=== PATIENT | male | born 1975 | race Caucasian/White ===

== ENCOUNTER 2017-07-16 09:14 | Outpatient (CLI) | payer OTHER ==
[2017-07-16 18:50] LABS: ALBUMIN 4.5 g/dL (3.2-5.5); ALBUMIN/GLOBULIN RATIO 1.6 (1.0-2.2); ALKALINE PHOSPHATASE 71 IU/L (42-121); ALT ALANINE AMINOTRANSFERASE 29 IU/L (10-60); AST ASPARTATE AMINOTRANSFERASE 22 IU/L (10-42); BILIRUBIN,TOTAL 1.3 mg/dL (0.2-1.0); BUN - BLOOD UREA NITROGEN 14 mg/dL (6-20); CALCIUM 9.3 mg/dL (8.5-10.3); CARBON DIOXIDE - CO2 26 mmol/L (21-32); CHLORIDE 103 mmol/L (101-111); CHOL/HDL RATIO 4.1 (<5.0); CHOLESTEROL 151 mg/dL; CREATININE 1.2 mg/dL (0.6-1.2); GFR - MDRD 66 (>89); GLUCOSE 88 mg/dL (70-100); HDL CHOLESTEROL 37 mg/dL; LDL CHOLESTEROL,CALCULATED 77 mg/dL; LDL/HDL RATIO 2.1 (<3.6); SODIUM 139 mmol/L (135-145); TOTAL PROTEIN 7.3 g/dL (6.7-8.2); VLDL CHOLESTEROL 37 mg/dL
[2017-07-16 18:58] LABS: THYROID STIMULATING HORMONE 0.23 uIU/mL (0.34-5.60)
[2017-07-16 21:48] LABS: FREE T4 (FREE THYROXINE) 1.11 ng/dL (0.58-1.64)
== END 2017-07-16 09:15 | disposition home or self-care (01) ==
LOC: LAB.F 09:14
PROVIDERS: ATTEND Nurse Practitioner Family
DX: I50.9 Heart failure, unspecified (principal); E78.1 Pure hyperglyceridemia; E06.3 Autoimmune thyroiditis; Z86.39 Personal history of other endocrine, nutritional and metabolic disease
CPT/HCPCS: 36415; 80053; 80061; 83721; 84439; 84443

== ENCOUNTER 2017-10-26 11:15 | Outpatient (CLI) | payer OTHER ==
[2017-10-26 17:23] LABS: BASOPHILS # (AUTO) 0.1 10^3/uL (0.0-0.1); BASOPHILS % (AUTO) 0.8 %; EOSINOPHILS # (AUTO) 0.3 10^3/uL (0.0-0.7); EOSINOPHILS % (AUTO) 3.8 %; HGB - HEMOGLOBIN 14.9 g/dL (14.0-18.0); LYMPHOCYTES # (AUTO) 2.7 10^3/uL (1.5-3.5); LYMPHOCYTES % (AUTO) 40.7 %; MEAN CORPUSCULAR HEMOGLOBIN 30.1 pg (27.0-31.0); MEAN CORPUSCULAR HGB CONC 33.2 g/dL (32.0-36.0); MEAN CORPUSCULAR VOLUME 90.7 fL (80.0-94.0); MEAN PLATELET VOLUME 7.4 fL (7.4-11.4); MONOCYTES # (AUTO) 0.6 10^3/uL (0.0-1.0); MONOCYTES % (AUTO) 8.6 %; NEUTROPHILS # (AUTO) 3.1 10^3/uL (1.5-6.6); NEUTROPHILS % (AUTO) 46.1 %; PLT - PLATELET COUNT 217 10^3/uL (130-450); RED BLOOD COUNT 4.95 10^6/uL (4.70-6.10); WHITE BLOOD COUNT 6.7 x10^3/uL (4.8-10.8)
[2017-10-26 17:36] LABS: CALCIUM 9.2 mg/dL (8.5-10.3); CREATININE 1.1 mg/dL (0.6-1.2)
== END 2017-10-26 11:16 | disposition home or self-care (01) ==
LOC: LAB.F 11:15
PROVIDERS: ATTEND Nurse Practitioner Family
DX: E06.3 Autoimmune thyroiditis (principal); E05.80 Other thyrotoxicosis without thyrotoxic crisis or storm; I42.8 Other cardiomyopathies; Z45.02 Encounter for adjustment and management of automatic implantable cardiac defibrillator
CPT/HCPCS: 36415; 80048; 84443; 85025

== ENCOUNTER 2020-04-20 12:28 | Outpatient (CLI) | payer BC, OTHER ==
[2020-04-20 14:39] LABS: BASOPHILS # (AUTO) 0.1 10^3/uL (0.0-0.1); BASOPHILS % (AUTO) 0.8 %; EOSINOPHILS # (AUTO) 0.3 10^3/uL (0.0-0.7); EOSINOPHILS % (AUTO) 3.3 %; HGB - HEMOGLOBIN 16.2 g/dL (14.0-18.0); MEAN CORPUSCULAR HEMOGLOBIN 31.4 pg (27.0-31.0); MEAN CORPUSCULAR HGB CONC 33.1 g/dL (32.0-36.0); MEAN CORPUSCULAR VOLUME 94.8 fL (80.0-94.0); MEAN PLATELET VOLUME 9.5 fL (7.4-11.4); MONOCYTES # (AUTO) 0.5 10^3/uL (0.0-1.0); MONOCYTES % (AUTO) 6.5 %; NEUTROPHILS # (AUTO) 4.1 10^3/uL (1.5-6.6); NEUTROPHILS % (AUTO) 51.8 %; PLT - PLATELET COUNT 208 10^3/uL (130-450); RED BLOOD COUNT 5.16 10^6/uL (4.70-6.10); RED CELL DISTRIBUTION WIDTH 12.1 % (12.0-15.0)
[2020-04-20 15:25] LABS: ALBUMIN/GLOBULIN RATIO 1.8 (1.0-2.2); ALKALINE PHOSPHATASE 85 IU/L (42-121); ALT ALANINE AMINOTRANSFERASE 23 IU/L (10-60); AST ASPARTATE AMINOTRANSFERASE 20 IU/L (10-42); BILIRUBIN,TOTAL 1.4 mg/dL (0.2-1.0); BUN - BLOOD UREA NITROGEN 13 mg/dL (6-20); CALCIUM 9.6 mg/dL (8.5-10.3); CARBON DIOXIDE - CO2 28 mmol/L (21-32); CHLORIDE 103 mmol/L (101-111); CHOL/HDL RATIO 4.3 (<5.0); CHOLESTEROL 193 mg/dL; CREATININE 1.2 mg/dL (0.6-1.2); GLUCOSE 95 mg/dL (70-100); HDL CHOLESTEROL 45 mg/dL; LDL CHOLESTEROL,CALCULATED 106 mg/dL; LDL/HDL RATIO 2.4 (<3.6); SODIUM 141 mmol/L (135-145); TOTAL PROTEIN 7.8 g/dL (6.7-8.2); VLDL CHOLESTEROL 42 mg/dL
== END 2020-04-20 12:29 | disposition home or self-care (01) ==
LOC: LAB.S 12:28
PROVIDERS: ATTEND Physician Assistant
DX: E78.5 Hyperlipidemia, unspecified (principal); Z13.1 Encounter for screening for diabetes mellitus; E78.1 Pure hyperglyceridemia; E06.3 Autoimmune thyroiditis; E66.9 Obesity, unspecified; Z95.810 Presence of automatic (implantable) cardiac defibrillator; I50.9 Heart failure, unspecified
CPT/HCPCS: 36415; 80053; 80061; 83721; 83880; 84443; 85025

== ENCOUNTER 2022-12-29 14:38 | Outpatient (CLI) | payer BC ==
[2022-12-29 20:37] LABS: BASOPHILS # (AUTO) 0.1 10^3/uL (0.0-0.1); BASOPHILS % (AUTO) 1.4 %; EOSINOPHILS # (AUTO) 0.4 10^3/uL (0.0-0.7); EOSINOPHILS % (AUTO) 4.5 %; HCT - HEMATOCRIT 45.6 % (42.0-52.0); HGB - HEMOGLOBIN 14.2 g/dL (14.0-18.0); LYMPHOCYTES # (AUTO) 1.9 10^3/uL (1.5-3.5); LYMPHOCYTES % (AUTO) 25.1 %; MEAN CORPUSCULAR HEMOGLOBIN 30.9 pg (27.0-31.0); MEAN CORPUSCULAR HGB CONC 31.1 g/dL (32.0-36.0); MEAN CORPUSCULAR VOLUME 99.3 fL (80.0-94.0); MEAN PLATELET VOLUME 9.6 fL (7.4-11.4); MONOCYTES # (AUTO) 0.6 10^3/uL (0.0-1.0); MONOCYTES % (AUTO) 7.2 %; NEUTROPHILS # (AUTO) 4.7 10^3/uL (1.5-6.6); NEUTROPHILS % (AUTO) 61.3 %; PLT - PLATELET COUNT 251 10^3/uL (130-450); RED BLOOD COUNT 4.59 10^6/uL (4.70-6.10); RED CELL DISTRIBUTION WIDTH 14.4 % (12.0-15.0); WHITE BLOOD COUNT 7.7 x10^3/uL (4.8-10.8)
[2022-12-29 21:04] LABS: ALBUMIN 4.4 g/dL (3.2-5.5); ALBUMIN/GLOBULIN RATIO 1.8 (1.0-2.2); ALKALINE PHOSPHATASE 141 IU/L (42-121); ALT ALANINE AMINOTRANSFERASE 31 IU/L (10-60); AST ASPARTATE AMINOTRANSFERASE 32 IU/L (10-42); BUN - BLOOD UREA NITROGEN 15 mg/dL (6-20); CALCIUM 9.3 mg/dL (8.5-10.3); CARBON DIOXIDE - CO2 28 mmol/L (21-32); CHLORIDE 108 mmol/L (101-111); CHOL/HDL RATIO 4.5 (<5.0); CHOLESTEROL 175 mg/dL; CREATININE 1.4 mg/dL (0.6-1.3); GFR - MDRD 54 (>89); GLUCOSE 100 mg/dL (74-104); HDL CHOLESTEROL 39 mg/dL; LDL CHOLESTEROL,CALCULATED 107 mg/dL; LDL/HDL RATIO 2.7 (<3.6); POTASSIUM 3.8 mmol/L (3.5-4.5); SODIUM 141 mmol/L (135-145); TOTAL PROTEIN 6.9 g/dL (6.4-8.9); TRIGLYCERIDES 146 mg/dL (48-352); VLDL CHOLESTEROL 29 mg/dL
[2022-12-30 14:02] LABS: GAMMA GLUTAMYL TRANSPEPTIDASE 207 IU/L (9-64)
== END 2022-12-29 14:39 | disposition home or self-care (01) ==
LOC: LAB.S 14:38
PROVIDERS: ATTEND Registered Nurse
DX: I12.9 Hypertensive chronic kidney disease with stage 1 through stage 4 chronic kidney disease, or unspecified chronic kidney disease (principal); N18.9 Chronic kidney disease, unspecified; E78.5 Hyperlipidemia, unspecified; E06.3 Autoimmune thyroiditis
CPT/HCPCS: 36415; 80053; 80061; 82977; 83721; 84439; 84443; 85025

== ENCOUNTER 2022-12-31 20:58 | Emergency (ER) | payer BC ==
--- NOTE | 2022-12-31 21:24 | ED Physician Documentation ---
PD HPI DYSPNEA - Stated complaint Stated Complaint: SOA - Chief complaint Chief Complaint: General - History obtained from History obtained from: Patient - Additional information Additional information: HPI from patient. Patient complains of dyspnea, particularly dyspnea on exertion. This has been associated with occasional nonproductive cough, as well as bilateral lower extremity weakness. The symptoms have been ongoing for approximately 2 to 3 weeks. Of note, patient stopped taking his levothyroxine approximately 4 or 5 weeks ago. He says he stopped taking this medication because he felt a was feeling well, as well as for financial reasons. He contacted his primary care provider 2 days ago (Sunday) and has an upcoming appointment; outpatient blood tests were obtained 2 days ago in anticipation of the upcoming appointment. Additionally, the primary care provider did submit a prescription for levothyroxine, which patient did start 2 days ago.Patient denies chest pain, fever. Review of Systems Unable to obtain: Unresponsive Constitutional: denies: Fever, Chills, Sweats Cardiac: reports: Reviewed and negative Respiratory: reports: Dyspnea, Cough GI: reports: Reviewed and negative Neurologic: reports: Generalized weakness. denies: Focal weakness, Numbness, Headache PD PAST MEDICAL HISTORY - Past Medical History Past Medical History: Yes Cardiovascular: Hypertension Endocrine/Autoimmune: HyPOthyroidism - Present Medications Home Medications: Ambulatory Orders Medication Instructions Recorded Confirmed Azithromycin [Zithromax] 250 mg PO DAILY #4 tablet 01/01/23 - Allergies Allergies/Adverse Reactions: Allergies Allergy/AdvReac Type Severity Reaction Status Date / Time heparin Allergy Unknown Verified 12/31/22 21:01 PD ED PE NORMAL - Vitals Vital signs reviewed: Yes - General General: Alert and oriented X 3, No acute distress, Well developed/nourished - Neck Neck: Supple, no meningeal sign - Cardiac Cardiac: RRR, No murmur - Respiratory Respiratory: No respiratory distress, Other (scant bibasilar rales/rhonchi) - Derm Derm: Normal color, Warm and dry - Extremities Extremities: No edema - Neuro Neuro: Alert and oriented X 3, No motor deficit, No sensory deficit Results - Vitals Vitals: Oxygen O2 Source Room air - Labs Labs: Laboratory Tests 12/31/22 12/31/22 21:59 21:59 WBC 8.3 RBC 4.74 Hgb 14.6 Hct 45.6 MCV 96.2 H MCH 30.8 MCHC 32.0 RDW 13.6 Plt Count 259 MPV 8.7 Neut # (Auto) 5.6 Lymph # (Auto) 1.6 [place] # (Auto) 0.7 Eos # (Auto) 0.2 Baso # (Auto) 0.1 Absolute Nucleated RBC 0.00 Nucleated RBC % 0.0 Sodium 139 Potassium 3.8 Chloride 105 Carbon Dioxide 26 Anion Gap 8.0 BUN 12 Creatinine 1.5 H Estimated GFR (MDRD) 50 L Glucose 128 H Calcium 8.8 Total Bilirubin 3.0 H AST 28 ALT 25 Alkaline Phosphatase 144 H Total Protein 7.2 Albumin 4.3 Globulin 2.9 Albumin/Globulin Ratio 1.5 Lipase 40 TSH 96.00 H Free T4 Direct 0.43 L Thyroxine (T4) 4.9 L - Rads (name of study) chest xray Relevant Findings:: Prelim report reviewed, See rad report PD Medical Decision Making - ED course Complexity details: reviewed results, re-evaluated patient, considered differential, d/w patient ED course: tests ordered and results reviewed by me: CBC, ER abdominal panel, TSH, T4, free T4, CXR. Normal CBC. Thyroid tests are abnormal , comparable to previous (few days prior). He restarted his levothyroxine few days ago and thus no significant change in thyroid tests is expected. He does not have signs/symptoms to suggest myxedema coma. BMP unremarkable (mildly elevated creatinine , 1.5). LFTs normal except mildly elevated bilirubin (3.0). Despite being in NAD including no respiratory distress, and only mild bilateral mid-lung field rhonchi, chest xray reflects significant bilateral perihilar infiltrates. He is given 1 gram IV rocephin, 500mg PO zithromax for pneumonia and e-prescribed 250mg azithromycin QD x 4 days. Results d/w patient, return precautions reviewed, advised to seek follow up with PMD (next available appointment). Departure - Departure Disposition: 01 Home, Self Care Clinical Impression: Pneumonia Qualifiers: Pneumonia type: due to unspecified organism Laterality: bilateral Lung location: unspecified part of lung Qualified Code(s): J18.9 - Pneumonia, unspecified organism Condition: Good Instructions: ED Pneumonia Adult Prescriptions: Azithromycin [Zithromax] 250 mg PO DAILY #4 tablet Comments: Your thyroid tests are markedly abnormal, although comparable to a few days ago when you had them tested on Sunday. As we discussed, as you continue to take the prescribed thyroid medication, your levels should improve as should your symptoms. The chest x-ray performed tonight does show haziness in both lungs suggestive of bilateral pneumonia. For this, you are given 2 different antibiotics (Rocephin through the IV as well as Zithromax orally), and I have electronically submitted a prescription for 4 more days of the Zithromax to the [facility] pharmacy in [place]. Follow-up with your primary care provider Sunday as scheduled for reevaluation. Forms: PCP List Discharge Date/Time: 01/01/23 02:38
[2022-12-31 22:04] LABS: BASOPHILS # (AUTO) 0.1 10^3/uL (0.0-0.1); BASOPHILS % (AUTO) 0.8 %; EOSINOPHILS # (AUTO) 0.2 10^3/uL (0.0-0.7); EOSINOPHILS % (AUTO) 2.9 %; HCT - HEMATOCRIT 45.6 % (42.0-52.0); HGB - HEMOGLOBIN 14.6 g/dL (14.0-18.0); LYMPHOCYTES # (AUTO) 1.6 10^3/uL (1.5-3.5); MEAN CORPUSCULAR HEMOGLOBIN 30.8 pg (27.0-31.0); MEAN CORPUSCULAR VOLUME 96.2 fL (80.0-94.0); MEAN PLATELET VOLUME 8.7 fL (7.4-11.4); MONOCYTES # (AUTO) 0.7 10^3/uL (0.0-1.0); MONOCYTES % (AUTO) 8.9 %; NEUTROPHILS # (AUTO) 5.6 10^3/uL (1.5-6.6); NEUTROPHILS % (AUTO) 67.8 %; PLT - PLATELET COUNT 259 10^3/uL (130-450); RED BLOOD COUNT 4.74 10^6/uL (4.70-6.10); RED CELL DISTRIBUTION WIDTH 13.6 % (12.0-15.0); WHITE BLOOD COUNT 8.3 x10^3/uL (4.8-10.8)
[2022-12-31 22:47] LABS: ALBUMIN 4.3 g/dL (3.2-5.5); ALBUMIN/GLOBULIN RATIO 1.5 (1.0-2.2); CALCIUM 8.8 mg/dL (8.5-10.3); CREATININE 1.5 mg/dL (0.6-1.2); POTASSIUM 3.8 mmol/L (3.5-5.0); TOTAL PROTEIN 7.2 g/dL (6.7-8.2)
--- NOTE | 2023-01-01 01:23 | XRAY Report ---
PROCEDURE: Chest 2 View X-Ray INDICATIONS: dyspnea. Productive cough. TECHNIQUE: 2 views of the chest were acquired. COMPARISON: None. FINDINGS: Surgical changes and devices: There is a left chest wall ICD with a single lead projecting over the right ventricle. Lungs and pleura: There are confluent bilateral perihilar airspace opacities consistent with consoli dation, right greater than left. There are small bilateral pleural effusions. No pneumothorax. Mediastinum: Mediastinal contours appear normal. Heart size is normal. Bones and chest wall: No suspicious bony lesions. Overlying soft tissues appear unremarkable. IMPRESSION: 1. Bilateral confluent perihilar consolidation consistent with pneumonia given clinical history. Nolberto mmend short-term follow-up to demonstrate resolution and exclude an underlying mass. Reviewed by: Aleksandr Garcias MD on 01/01/2023 1:22 AM PDT Approved by: Aleksandr Garcias MD on 01/01/2023 1:22 AM PDT Station ID: [id number]
[2023-01-01] MEDS ORDERED: AZITHROMYCIN 250 MG TABLET PO STA (01:58)
[2023-01-01] MEDS ORDERED: cefTRIAXone 1 GM in SODIUM CHLORIDE 0.9% MINIBAG 100 ML IV STA (01:58)
[2023-01-01] MEDS ORDERED: cefTRIAXone 1 GM VIAL ONE (02:23)
[2023-01-01 02:45] VITALS: BP 102/78
== END 2023-01-01 02:38 | disposition home or self-care (01) ==
LOC: ED 20:58
DX: J18.9 Pneumonia, unspecified organism (principal); I10 Essential (primary) hypertension
CPT/HCPCS: 36415; 71046; 80053; 83690; 84436; 84439; 84443; 85025; 96374; 99284; A9270

== ENCOUNTER 2023-04-04 07:55 | Emergency (ER) | payer BC ==
[2023-04-04] MEDS ORDERED: SODIUM CHLORIDE 0.9% 500 ML IV STA (08:30)
[2023-04-04 08:56] LABS: BASOPHILS # (AUTO) 0.1 10^3/uL (0.0-0.1); BASOPHILS % (AUTO) 0.9 %; EOSINOPHILS # (AUTO) 0.1 10^3/uL (0.0-0.7); EOSINOPHILS % (AUTO) 0.9 %; HCT - HEMATOCRIT 54.7 % (42.0-52.0); HGB - HEMOGLOBIN 16.7 g/dL (14.0-18.0); LYMPHOCYTES # (AUTO) 2.7 10^3/uL (1.5-3.5); LYMPHOCYTES % (AUTO) 30.3 %; MEAN CORPUSCULAR HEMOGLOBIN 29.7 pg (27.0-31.0); MEAN CORPUSCULAR HGB CONC 30.5 g/dL (32.0-36.0); MEAN CORPUSCULAR VOLUME 97.3 fL (80.0-94.0); MEAN PLATELET VOLUME 10.4 fL (7.4-11.4); MONOCYTES # (AUTO) 0.6 10^3/uL (0.0-1.0); MONOCYTES % (AUTO) 6.5 %; NEUTROPHILS # (AUTO) 5.4 10^3/uL (1.5-6.6); NEUTROPHILS % (AUTO) 60.3 %; PLT - PLATELET COUNT 271 10^3/uL (130-450); RED BLOOD COUNT 5.62 10^6/uL (4.70-6.10); RED CELL DISTRIBUTION WIDTH 16.2 % (12.0-15.0)
[2023-04-04 08:57] LABS: ALBUMIN/GLOBULIN RATIO 1.7 (1.0-2.2); BILIRUBIN,TOTAL 3.9 mg/dL (0.2-1.0); CALCIUM 9.1 mg/dL (8.5-10.3); CREATININE 1.8 mg/dL (0.6-1.3); POTASSIUM 4.4 mmol/L (3.5-4.5); TOTAL PROTEIN 6.3 g/dL (6.4-8.9)
--- NOTE | 2023-04-04 09:07 | XRAY Report ---
PROCEDURE: Chest 1 View X-Ray INDICATIONS: SOA/cough TECHNIQUE: One view of the chest was acquired. COMPARISON: Chest x-ray 12/31/2022 FINDINGS: Surgical changes and devices: A smoker. Lungs and pleura: No pleural effusions or pneumothorax. Lungs are clear. Mediastinum: Mediastinal contours appear normal. Heart size is enlarged. Bones and chest wall: No suspicious bony lesions. Overlying soft tissues appear unremarkable. IMPRESSION: No acute cardiopulmonary process. Reviewed by: Monica Vines MD on 04/04/2023 9:06 AM [facility] Approved by: Monica Vines MD on 04/04/2023 9:06 AM [facility] Station ID: [id number]
--- NOTE | 2023-04-04 09:49 | ED Physician Documentation ---
PD HPI DYSPNEA - Stated complaint Stated Complaint: SOA - Chief complaint Chief Complaint: Resp - History obtained from History obtained from: Patient - Additional information Additional information: Patient is a 48-year-old male with a history of congestive heart failure and hypothyroidism presenting for evaluation of feeling short of air. Patient was seen here in December with similar symptoms and at that time felt to have pneumonia and completed a course of antibiotics. He states that his shortness of air has been continuing since that time and has never really gotten better. He states he had minimal improvement while on the antibiotics. He saw his PCP a few days after his ER visit this summer and not much came from that visit. He states he has had a dry cough for the past several weeks. No chest pain, no dizziness. Chest pain is worse with exertion. Is only on his thyroid medications currently. Not taking anything as far as antihypertensives or diuretic. No fevers. No abdominal symptoms. Review of Systems Constitutional: denies: Fever Cardiac: denies: Chest pain / pressure Respiratory: reports: Dyspnea, Cough GI: denies: Abdominal Pain, Vomiting Musculoskeletal: reports: Extremity swelling PD PAST MEDICAL HISTORY - Past Medical History Past Medical History: Yes Cardiovascular: Congestive heart failure, Hypertension Respiratory: None Neuro: None Endocrine/Autoimmune: HyPOthyroidism GI: GERD : None HEENT: None Psych: Depression Musculoskeletal: None Derm: Other - Past Surgical History Past Surgical History: Yes Cardiovascular: Pacemaker, AICD - Present Medications Home Medications: Ambulatory Orders Medication Instructions Recorded Confirmed Furosemide [Lasix] 20 mg PO DAILY #3 tablet 04/04/23 Levothyroxine Sodium [Unithroid] 175 mcg PO DAILY 04/04/23 04/04/23 - Allergies Allergies/Adverse Reactions: Allergies Allergy/AdvReac Type Severity Reaction Status Date / Time heparin Allergy Unknown Verified 04/04/23 08:08 piperacillin [From Zosyn] Allergy Unknown Verified 04/04/23 08:08 tazobactam [From Zosyn] Allergy Unknown Verified 04/04/23 08:08 - Social History Does the pt smoke?: No Smoking Status: Never smoker Does the pt drink ETOH?: No Does the pt have substance abuse?: No - Immunizations Immunizations are current?: Yes PD ED PE NORMAL - General General: Alert and oriented X 3, No acute distress, Well developed/nourished - HEENT HEENT: Atraumatic, Moist mucous membranes, Pharynx benign - Neck Neck: Supple, no meningeal sign - Cardiac Cardiac: RRR - Respiratory Respiratory: No respiratory distress, Clear bilaterally - Abdomen Abdomen: Soft, Non tender, Non distended - Derm Derm: Warm and dry - Extremities Extremities: No calf tenderness / cord, Other (Mild edema bilaterally) Results - Vitals Vitals: Vital Signs - 24 hr 04/04/23 04/04/23 08:08 10:23 Temperature 35.8 C L 36.3 C L Heart Rate 74 78 Respiratory 18 15 Rate Blood Pressure 100/69 108/90 H O2 Saturation 99 98 Oxygen O2 Source Room air - EKG (time done) 0903 EKG releavant findings:: EKG personally interpreted by author of this note. Relevant findings are: Rate 78, normal sinus rhythm, no STEMI - Labs Labs: Laboratory Tests 04/04/23 04/04/23 04/04/23 08:38 08:38 08:38 WBC 9.0 RBC 5.62 Hgb 16.7 Hct 54.7 H MCV 97.3 H MCH 29.7 MCHC 30.5 L RDW 16.2 H Plt Count 271 MPV 10.4 Neut # (Auto) 5.4 Lymph # (Auto) 2.7 [place] # (Auto) 0.6 Eos # (Auto) 0.1 Baso # (Auto) 0.1 Absolute Nucleated RBC 0.00 Nucleated RBC % 0.0 D-Dimer Sodium 132 L Potassium 4.4 Chloride 99 L Carbon Dioxide 22 Anion Gap 11.0 BUN 24 H Creatinine 1.8 H Estimated GFR (MDRD) 40 L Glucose 99 Calcium 9.1 Total Bilirubin 3.9 H AST 34 ALT 108 H Alkaline Phosphatase 154 H B-Natriuretic Peptide 1691 H Total Protein 6.3 L Albumin 4.0 Globulin 2.3 Albumin/Globulin Ratio 1.7 Nasal Adenovirus (PCR) Nasal B. parapertussis DNA (PCR) Nasal Coronavir 229E PCR Nasal Coronavir HKU1 PCR Nasal Coronavir NL63 PCR Nasal Coronavir OC43 PCR Nasal Enterovir/Rhinovir PCR Nasal Influenza B PCR Nasal Influenza A PCR Nasal Parainfluen 1 PCR Nasal Parainfluen 2 PCR Nasal Parainfluen 3 PCR Nasal Parainfluen 4 PCR Nasal RSV (PCR) Nasal B.pertussis DNA PCR Nasal C.pneumoniae (PCR) [place] Human Metapneumo PCR Nasal M.pneumoniae (PCR) Nasal SARS-CoV-2 (PCR) 04/04/23 04/04/23 08:42 09:39 WBC RBC Hgb Hct MCV MCH MCHC RDW Plt Count MPV Neut # (Auto) Lymph # (Auto) [place] # (Auto) Eos # (Auto) Baso # (Auto) Absolute Nucleated RBC Nucleated RBC % D-Dimer 979.6 H Sodium Potassium Chloride Carbon Dioxide Anion Gap BUN Creatinine Estimated GFR (MDRD) Glucose Calcium Total Bilirubin AST ALT Alkaline Phosphatase B-Natriuretic Peptide Total Protein Albumin Globulin Albumin/Globulin Ratio Nasal Adenovirus (PCR) NOT DETECTED Nasal B. parapertussis DNA (PCR) NOT DETECTED Nasal Coronavir 229E PCR NOT DETECTED Nasal Coronavir HKU1 PCR NOT DETECTED Nasal Coronavir NL63 PCR NOT DETECTED Nasal Coronavir OC43 PCR NOT DETECTED Nasal Enterovir/Rhinovir PCR NOT DETECTED Nasal Influenza B PCR NOT DETECTED Nasal Influenza A PCR NOT DETECTED Nasal Parainfluen 1 PCR NOT DETECTED Nasal Parainfluen 2 PCR NOT DETECTED Nasal Parainfluen 3 PCR NOT DETECTED Nasal Parainfluen 4 PCR NOT DETECTED Nasal RSV (PCR) NOT DETECTED Nasal B.pertussis DNA PCR NOT DETECTED Nasal C.pneumoniae (PCR) NOT DETECTED [place] Human Metapneumo PCR NOT DETECTED Nasal M.pneumoniae (PCR) NOT DETECTED Nasal SARS-CoV-2 (PCR) NOT DETECTED PD Medical Decision Making - ED course Complexity details: reviewed results, re-evaluated patient, d/w patient ED course: Patient is a 48-year-old male with a history of congestive heart failure, hypothyroidism, has an AICD in place presenting for evaluation of shortness of air for the past several months. He was seen here in December and diagnosed with pneumonia at that time and states his symptoms never really got better even after a course of antibiotics. He denies any significant worsening This may be noticed his symptoms more in the last couple of weeks. He reports a cough. He has some postnasal drainage. No chest pain. Has had some leg swelling. No history of PE or DVT. Labs including CBC, chemistry, BNP and D-dimer were obtained and reviewed. Chest x-ray which I reviewed is clear. EKG is nonischemic. No chest pain to suggest ACS and symptoms have been ongoing for months. Patient has an elevated BNP along with elevated creatinine and liver markers. Creatinine appears to be slightly higher than his baseline. No abdominal tenderness noted on exam. D-dimer was obtained which is also elevated and a CT angio was obtained. It is negative for pulmonary embolism but does demonstrate bilateral pleural effusions. This in combination with his elevated BNP and leg swelling suggest congestive heart failure as a possible etiology for his symptoms. We will trial on a short course of Lasix. I did express concern for using Lasix as his kidney function has shown some decline recently. I did encourage close follow-up with his primary care provider for recheck of his kidneys and liver as well as reassessment of his symptoms and to further evaluation. Patient is also counseled on strict return precautions. His vital signs here have been stable. He has not been hypoxic.. Departure - Departure Disposition: 01 Home, Self Care Clinical Impression: SOB (shortness of breath), Bilateral pleural effusion, Congestive heart failure, LUCY (acute kidney injury), Abnormal liver enzymes Condition: Stable Instructions: ED CHF General, ED Dyspnea Shortness of Breath Prescriptions: Furosemide [Lasix] 20 mg PO DAILY #3 tablet Comments: Your testing today shows that you have fluid buildup in both of your lungs. At this time there is no signs of a blood clot in your lungs but the fluid there could be the reason that you are feeling more short of breath in the last few months. On evaluation with your lab testing your kidneys are also not working as well as they usually are and your liver markers are elevated. I am going to trial you on a short course of a water pill called furosemide or Lasix to help remove some fluid off your body. However this medication can affect your electrolytes and your kidneys so I do not want you on it for a very long time and also think you need very close follow-up with your primary care provider. You likely need further testing to evaluate your heart such as may be an echocardiogram which is an ultrasound of your heart. You may also need adjustment of your medications and you should have recheck of your kidneys as well as liver testing. If at anytime you develop any worsening symptoms such as development of chest pain then please consider return to the emergency department. I have sent your prescription to [facility] in [place]. Forms: PCP List
[2023-04-04 10:42] LABS: B. PARAPERTUSSIS- RESP PCR PAN NOT DETECTED; B. PERTUSSIS- RESP PCR PANEL NOT DETECTED; C. PNEUMONIAE- RESP PCR PANEL NOT DETECTED; CORONAVIRUS 229E-RESP PCR NOT DETECTED; CORONAVIRUS HKU1-RESP PCR NOT DETECTED; CORONAVIRUS NL63-RESP PCR NOT DETECTED; CORONAVIRUS OC43-RESP PCR NOT DETECTED; HUMAN METAPNEUMOVIRUS NOT DETECTED; INFLUENZA A- RESP PCR PANEL NOT DETECTED; INFLUENZA B - RESP PCR PANEL NOT DETECTED; M. PNEUMONIAE- RESP PCR PANEL NOT DETECTED; PARAINFLUENZA VIRUS 1 NOT DETECTED; PARAINFLUENZA VIRUS 2 NOT DETECTED; PARAINFLUENZA VIRUS 3 NOT DETECTED; PARAINFLUENZA VIRUS 4 NOT DETECTED; RHINOVIRUS/ENTEROVIRUS NOT DETECTED; RSV- RESP PCR PANEL NOT DETECTED; SARS-CoV-2 -RESP PCR PANEL NOT DETECTED
--- NOTE | 2023-04-04 13:28 | CT Report ---
PROCEDURE: ANGIO CHEST W/WO INDICATIONS: SOA/elevated ddimer CONTRAST: 80ml omni 300 TECHNIQUE: After the administration of intravenous contrast, 2 mm axial images were acquired from the pulmonary apices to the posterior costophrenic angles during the arterial phase. In addition, 1 mm lung kernel and 5 mm soft tissue kernel reconstructions were performed. 3-dimensional coronal oblique maximum int ensity projection (MIP) reformats, 8 mm axial MIP, and 5 mm coronal and sagittal MPR reformats were t hen performed through the thorax. For radiation dose reduction, the following was used: automated exp osure control, adjustment of mA and/or kV according to patient size. COMPARISON: Chest x-ray 04/04/2023. FINDINGS: Image quality: Prominent artifact from anterior chest wall device. Large vessels: No filling defects within the opacified pulmonary arteries, accounting for motion and contrast timing. No evidence of acute aortic syndrome or aortic aneurysm. Lungs and pleura: Mild to moderate right and mild left pleural effusions. No pleural effusions. No p neumothorax. No suspicious pulmonary nodules which require follow up. Mediastinum: Heart size is enlarged. No pericardial effusion. No large vessel abnormality. No mediast inal adenopathy by size criteria. Chest wall and lower neck: Thyroid is not visualized. No axillary or supraclavicular adenopathy by si ze. Bones: No aggressive osseous abnormality. Upper Abdomen: Unremarkable. IMPRESSION: No central pulmonary embolus. However, distal branches are not well evaluated secondary to artifact f rom anterior chest wall device. Small emboli cannot be excluded. Reviewed by: Monica Vines MD on 04/04/2023 1:27 PM [facility] Approved by: Monica Vines MD on 04/04/2023 1:27 PM PST Station ID: [id number]
[2023-04-04 14:20] VITALS: BP 108/72; O2SAT 99
[2023-04-04] MEDS ORDERED: iohexoL-300 100 ML VIAL IVP ONE (16:20)
== END 2023-04-04 14:15 | disposition home or self-care (01) ==
LOC: ED 07:55
DX: J90 Pleural effusion, not elsewhere classified (principal); N17.9 Acute kidney failure, unspecified; R06.02 Shortness of breath; R74.8 Abnormal levels of other serum enzymes; I11.0 Hypertensive heart disease with heart failure; I50.9 Heart failure, unspecified; E03.9 Hypothyroidism, unspecified; Z20.822 Contact with and (suspected) exposure to COVID-19; Z79.899 Other long term (current) drug therapy
CPT/HCPCS: 36415; 71045; 71275; 80053; 83880; 85025; 85379; 87633; 93005; 99284; Q9967

== ENCOUNTER 2023-04-17 13:21 | Outpatient (CLI) | payer BC ==
[2023-04-17 20:15] LABS: CALCIUM 9.1 mg/dL (8.5-10.3); CREATININE 1.8 mg/dL (0.6-1.3); POTASSIUM 3.8 mmol/L (3.5-4.5)
== END 2023-04-17 13:22 | disposition home or self-care (01) ==
LOC: LAB.S 13:21
PROVIDERS: ATTEND Registered Nurse
DX: N17.9 Acute kidney failure, unspecified (principal); I50.9 Heart failure, unspecified
CPT/HCPCS: 36415; 80048; 83880

== ENCOUNTER 2023-04-24 13:08 | Outpatient (CLI) | payer BC ==
[2023-04-24 15:04] LABS: CALCIUM 9.1 mg/dL (8.5-10.3); CREATININE 1.2 mg/dL (0.6-1.3); POTASSIUM 3.9 mmol/L (3.5-4.5)
[2023-04-24 15:05] LABS: THYROID STIMULATING HORMONE 3.76 uIU/mL (0.34-5.60)
== END 2023-04-24 13:09 | disposition home or self-care (01) ==
LOC: LAB.S 13:08
PROVIDERS: ATTEND Registered Nurse
DX: E06.3 Autoimmune thyroiditis (principal); I50.9 Heart failure, unspecified; N17.9 Acute kidney failure, unspecified
CPT/HCPCS: 36415; 80048; 83880; 84443

== ENCOUNTER 2023-05-11 14:21 | Outpatient (CLI) | payer BC ==
[2023-05-11 20:05] LABS: ALBUMIN/GLOBULIN RATIO 1.5 (1.0-2.2); BILIRUBIN,TOTAL 1.9 mg/dL (0.2-1.0); CALCIUM 9.6 mg/dL (8.5-10.3); POTASSIUM 3.9 mmol/L (3.5-4.5); TOTAL PROTEIN 6.6 g/dL (6.4-8.9)
== END 2023-05-11 14:22 | disposition home or self-care (01) ==
LOC: LAB.S 14:21
PROVIDERS: ATTEND Registered Nurse
DX: I50.9 Heart failure, unspecified (principal)
CPT/HCPCS: 36415; 80053; 83880